=== PATIENT | male | born 1975 | race African-American/Black ===

== ENCOUNTER 2021-10-24 10:00 | Emergency (ER) | payer OTHER ==
[2021-10-24 10:07] VITALS: PULSE 91; TEMP 98.6; BMI 42.5
[2021-10-24 10:38] VITALS: BP 145/94
[2021-10-24] MEDS ORDERED: CYCLOBENZAPRINE HCL 10 MG TABLET (FP) PO ONE (11:20)
[2021-10-24] MEDS ORDERED: KETOROLAC TROMETHAMINE 30 MG/1 ML VIAL IM ONE (11:20)
[2021-10-24] MEDS ORDERED: CYCLOBENZAPRINE HCL 10 MG TABLET (FP) ONE (11:28)
[2021-10-24] MEDS ORDERED: KETOROLAC TROMETHAMINE 30 MG/1 ML VIAL ONE (11:29)
== END 2021-10-24 12:27 | disposition home or self-care (01) ==
LOC: JERFT 10:00
PROC: 3E023GC Introduction of Other Therapeutic Substance into Muscle, Percutaneous Approach (ICD-10-PCS; principal; 2021-10-24)
DX: M54.50 Low back pain, unspecified (principal); M79.604 Pain in right leg; V49.50XA Passenger injured in collision with unspecified motor vehicles in traffic accident, initial encounter
CPT/HCPCS: 72040-TC; 72100-TC-FY; 99284-25